=== PATIENT | male | born 1940 | race Caucasian/White ===

== ENCOUNTER 2019-08-26 12:33 | Emergency (ER) | payer MEDICARE ==
[~2019-08-26] VITALS: Ht 172.7 cm; Wt 75.0 kg
[~2019-08-26 12:33] MED LIST: ACET-3161 PO; FERR1TAB84 PO; MULT-1146 PO; [UNRECOGNIZED DRUG - REMARK]
[2019-08-26 13:14] LABS: BASOPHILS % 0.6 % (0.0-2.0); EOSINOPHILS % 2.1 % (0.0-5.0); HEMATOCRIT. 52.6 % (42.0-52.0); HEMOGLOBIN. 18.4 g/dL (14.0-18.0); MEAN CORPUSCULAR VOLUME 94.5 fL (80.0-94.0); MEAN PLATELET VOLUME 9.9 fl (7.4-10.4); MONOCYTES % 8.5 % (2.0-8.0); NEUTROPHILS % 50.8 % (40.0-76.0); PLATELET 149 x1000/uL (130-400); RED BLOOD CELL COUNT 5.57 mill/uL (4.7-6.1); RED CELL DISTRIBUTION WIDTH 13.8 % (11.6-14.6)
[2019-08-26] MEDS ORDERED: FOLIC ACID 1 MG, THIAMINE HCL 100 MG, MVI, ADULT NO.1 10 ML in DEXTROSE 5% WATER 1,000 ML IV ONE ×4 (13:15)
[2019-08-26 13:16] LABS: CHLORIDE 103 mEq/L (98-107)
[2019-08-26 13:20] LABS: ETHANOL BLOOD 247 mg/dL
[2019-08-26] MEDS ORDERED: ONDANSETRON HCL 4MG/2ML INJ IV ONE (14:15)
[2019-08-26 15:07] LABS: CLARITY URINE CLEAR (CLEAR); COLOR URINE YELLOW (YELLOW); KETONES URINE NEGATIVE (NEGATIVE); LEUKOCYTE ESTERASE URINE NEGATIVE (NEGATIVE); NITRITE URINE NEGATIVE (NEGATIVE); OCCULT BLOOD URINE NEGATIVE (NEGATIVE); PROTEIN URINE NEGATIVE (NEGATIVE); SPECIFIC GRAVITY URINE 1.008 (1.005-1.030)
[2019-08-26 15:21] LABS: *AMPHETAMINES SCREEN URINE NEGATIVE (NEGATIVE); *BARBITURATES SCREEN URINE NEGATIVE (NEGATIVE); *BENZODIAZEPINES SCREEN URINE NEGATIVE (NEGATIVE); *COCAINE SCREEN URINE NEGATIVE (NEGATIVE); METHADONE URINE SCREEN NEGATIVE (NEGATIVE); OPIATES URINE SCREEN NEGATIVE (NEGATIVE)
[2019-08-26 15:22] LABS: CANNABINOID URINE SCREEN NEGATIVE (NEGATIVE); PHENCYCLIDINE URINE SCREEN NEGATIVE (NEGATIVE)
[2019-08-26 18:00] VITALS: BP 124/81
== END 2019-08-26 18:06 | disposition home or self-care (01) ==
LOC: ER 12:33
DX: T51.0X1A Toxic effect of ethanol, accidental (unintentional), initial encounter (principal); S02.2XXB Fracture of nasal bones, initial encounter for open fracture; G92 Toxic encephalopathy; F10.129 Alcohol abuse with intoxication, unspecified; Y90.8 Blood alcohol level of 240 mg/100 ml or more; W01.198A Fall on same level from slipping, tripping and stumbling with subsequent striking against other object, initial encounter; Y93.89 Activity, other specified; Y92.89 Other specified places as the place of occurrence of the external cause
CPT/HCPCS: 36415; 70450; 70486; 71045; 72125; 80053; 80305; 80307; 80320; 80329; 81003; 84484; 85025; 93005; 96365; 96375; 99285; J3411; J3490; J7070; G0480

== ENCOUNTER 2020-12-01 12:28 | Inpatient (IN) | payer MEDICARE, OTHER ==
[~2020-12-01] VITALS: Ht 177.8 cm; Wt 81.3 kg
[2020-12-01 14:08] LABS: BASOPHILS % 0.5 % (0.0-2.0); EOSINOPHILS % 0.7 % (0.0-5.0); HEMOGLOBIN. 18.2 g/dL (14.0-18.0); MEAN CORPUSCULAR HEMOGLOBIN 33.4 pg (28.0-32.0); MEAN CORPUSCULAR VOLUME 93.6 fL (80.0-94.0); MEAN PLATELET VOLUME 10.2 fl (7.4-10.4); MONOCYTES % 8.4 % (2.0-8.0); NEUTROPHILS % 76.4 % (40.0-76.0); PLATELET 184 x1000/uL (130-400); RED BLOOD CELL COUNT 5.45 mill/uL (4.7-6.1); RED CELL DISTRIBUTION WIDTH 13.2 % (11.6-14.6)
[2020-12-01 14:11] LABS: CHLORIDE 106 mEq/L (98-107)
[2020-12-01 14:15] LABS: ETHANOL BLOOD < 10 mg/dL
[2020-12-01] MEDS ORDERED: SODIUM CHLORIDE 0.9% 1,000 ML IV ONE (15:15)
[2020-12-01 16:35] LABS: CLARITY URINE CLEAR (CLEAR); COLOR URINE DARK YELLOW (YELLOW); KETONES URINE TRACE (NEGATIVE); LEUKOCYTE ESTERASE URINE TRACE (NEGATIVE); NITRITE URINE NEGATIVE (NEGATIVE); OCCULT BLOOD URINE NEGATIVE (NEGATIVE); PH URINE 7.5 (4.5-8.0); PROTEIN URINE TRACE (NEGATIVE); SPECIFIC GRAVITY URINE 1.021 (1.005-1.030)
[2020-12-01 16:50] LABS: *BARBITURATES SCREEN URINE NEGATIVE (NEGATIVE); *BENZODIAZEPINES SCREEN URINE NEGATIVE (NEGATIVE)
[2020-12-01 16:51] LABS: *AMPHETAMINES SCREEN URINE NEGATIVE (NEGATIVE); *COCAINE SCREEN URINE NEGATIVE (NEGATIVE); METHADONE URINE SCREEN NEGATIVE (NEGATIVE); OPIATES URINE SCREEN NEGATIVE (NEGATIVE); PHENCYCLIDINE URINE SCREEN NEGATIVE (NEGATIVE)
[2020-12-01 16:52] LABS: CANNABINOID URINE SCREEN NEGATIVE (NEGATIVE)
[2020-12-01] MEDS ORDERED: CEFTRIAXONE 1 G PREMIX 50 ML IV SCH (18:45)
[2020-12-01] MEDS: CEFTRIAXONE 1,000 MG in DEXTROSE 5% WATER 50 ML IV SCH (21:27)
[2020-12-01] MEDS ORDERED: ONDANSETRON HCL 4MG TABLET PO PRN (22:45)
[2020-12-01] MEDS ORDERED: ACETAMINOPHEN 325MG TABLET PO PRN (22:45)
[2020-12-01] MEDS: LORAZEPAM 1MG TABLET PO PRN (23:32)
[2020-12-02] VITALS (9 sets, daily range): BP systolic 99–150; BP diastolic 71–94
[2020-12-02] MEDS: PANTOPRAZOLE 40MG DR TABLET PO SCH (05:53)
[2020-12-02] MEDS: ENOXAPARIN 40MG/0.4ML SYR SUBCUT SCH (08:55)
[2020-12-02] MEDS: MULTIVITAMINS,THER W-MINERALS TABLET PO SCH (08:55)
[2020-12-02] MEDS: ASPIRIN 81MG TABLET PO SCH (08:55)
[2020-12-02] MEDS: THIAMINE HCL 100MG TABLET PO SCH (08:56)
[2020-12-02] MEDS: FOLIC ACID 1MG TABLET PO SCH (08:56)
[2020-12-02] MEDS: CEFTRIAXONE 1,000 MG in DEXTROSE 5% WATER 50 ML IV SCH (20:49)
[2020-12-03] VITALS (8 sets, daily range): BP systolic 110–137; BP diastolic 56–85
[2020-12-03] MEDS: PANTOPRAZOLE 40MG DR TABLET PO SCH (06:03)
[2020-12-03] MEDS: ASPIRIN 81MG TABLET PO SCH (09:13)
[2020-12-03] MEDS: MULTIVITAMINS,THER W-MINERALS TABLET PO SCH (09:13)
[2020-12-03] MEDS: FOLIC ACID 1MG TABLET PO SCH (09:14)
[2020-12-03] MEDS: THIAMINE HCL 100MG TABLET PO SCH (09:15)
[2020-12-03] MEDS: ENOXAPARIN 40MG/0.4ML SYR SUBCUT SCH (09:15)
[2020-12-03] MEDS: CEFTRIAXONE 1,000 MG in DEXTROSE 5% WATER 50 ML IV SCH (20:17)
[2020-12-03] MEDS: FAMOTIDINE 20MG TABLET PO SCH (21:29)
[2020-12-04] VITALS (7 sets, daily range): BP systolic 105–129; BP diastolic 59–85
[2020-12-04] MEDS: FAMOTIDINE 20MG TABLET PO SCH ×2 (07:03→20:26)
[2020-12-04 10:07] LABS: BASOPHILS % 0.6 % (0.0-2.0); HEMATOCRIT. 54.4 % (42.0-52.0); HEMOGLOBIN. 19.2 g/dL (14.0-18.0); LYMPHOCYTES % 25.4 % (20.0-50.0); MEAN CORPUSCULAR HEMOGLOBIN 32.8 pg (28.0-32.0); MEAN PLATELET VOLUME 10.1 fl (7.4-10.4); MONOCYTES % 8.4 % (2.0-8.0); NEUTROPHILS % 63.6 % (40.0-76.0); PLATELET 180 x1000/uL (130-400); RED BLOOD CELL COUNT 5.85 mill/uL (4.7-6.1); RED CELL DISTRIBUTION WIDTH 13.2 % (11.6-14.6)
[2020-12-04 10:23] LABS: CHLORIDE 103 mEq/L (98-107)
[2020-12-04] MEDS: ENOXAPARIN 40MG/0.4ML SYR SUBCUT SCH (10:28)
[2020-12-04] MEDS: ASPIRIN 81MG TABLET PO SCH (10:28)
[2020-12-04] MEDS: MULTIVITAMINS,THER W-MINERALS TABLET PO SCH (10:28)
[2020-12-04] MEDS: THIAMINE HCL 100MG TABLET PO SCH (10:28)
[2020-12-04] MEDS: CEFTRIAXONE 1,000 MG in DEXTROSE 5% WATER 50 ML IV SCH (20:28)
[2020-12-05] VITALS (8 sets, daily range): BP systolic 106–135; BP diastolic 60–84
[2020-12-05] MEDS: FAMOTIDINE 20MG TABLET PO SCH ×2 (06:42→22:22)
[2020-12-05] MEDS: THIAMINE HCL 100MG TABLET PO SCH (09:00)
[2020-12-05] MEDS: ASPIRIN 81MG TABLET PO SCH (09:00)
[2020-12-05] MEDS: FOLIC ACID 1MG TABLET PO SCH (09:00)
[2020-12-05] MEDS: MULTIVITAMINS,THER W-MINERALS TABLET PO SCH (09:00)
[2020-12-05] MEDS: ENOXAPARIN 40MG/0.4ML SYR SUBCUT SCH (09:01)
[2020-12-05] MEDS: CEFTRIAXONE 1,000 MG in DEXTROSE 5% WATER 50 ML IV SCH (20:39)
[2020-12-05] MEDS: LORAZEPAM 1MG TABLET PO PRN (22:22)
[2020-12-06 04:00] VITALS: BP 106/63
[2020-12-06] MEDS: FAMOTIDINE 20MG TABLET PO SCH ×2 (07:40→20:03)
[2020-12-06 08:00] VITALS: BP 118/78
[2020-12-06] MEDS: ENOXAPARIN 40MG/0.4ML SYR SUBCUT SCH (09:00)
[2020-12-06] MEDS: THIAMINE HCL 100MG TABLET PO SCH (09:41)
[2020-12-06] MEDS: MULTIVITAMINS,THER W-MINERALS TABLET PO SCH (09:41)
[2020-12-06] MEDS: ASPIRIN 81MG TABLET PO SCH (09:41)
[2020-12-06] MEDS: FOLIC ACID 1MG TABLET PO SCH (09:41)
[2020-12-06 20:00] VITALS: BP_SYST 107; BP_SYST 122; BP_DIAS 69; BP_DIAS 70; BP_DIAS 80
[2020-12-06] MEDS: CEFTRIAXONE 1,000 MG in DEXTROSE 5% WATER 50 ML IV SCH (20:03)
[2020-12-07] VITALS: BP 116/67
[2020-12-07 04:00] VITALS: BP 119/74
[2020-12-07] MEDS: FAMOTIDINE 20MG TABLET PO SCH ×2 (06:17→21:07)
[2020-12-07 08:00] VITALS: BP 125/72
[2020-12-07] MEDS: ENOXAPARIN 40MG/0.4ML SYR SUBCUT SCH (09:10)
[2020-12-07] MEDS: THIAMINE HCL 100MG TABLET PO SCH (09:10)
[2020-12-07] MEDS: FOLIC ACID 1MG TABLET PO SCH (09:10)
[2020-12-07] MEDS: ASPIRIN 81MG TABLET PO SCH (09:10)
[2020-12-07] MEDS: MULTIVITAMINS,THER W-MINERALS TABLET PO SCH (09:10)
[2020-12-07 12:00] VITALS: BP 105/68
[2020-12-07 16:00] VITALS: BP 113/75
[2020-12-07 20:00] VITALS: BP 112/70
[2020-12-08] VITALS: BP_SYST 122; BP_SYST 124; BP_SYST 131; BP_DIAS 80; BP_DIAS 83; BP_DIAS 89
[2020-12-08 04:00] VITALS: BP 131/75
[2020-12-08] MEDS: FAMOTIDINE 20MG TABLET PO SCH ×2 (06:51→20:50)
[2020-12-08 08:00] VITALS: BP 132/82
[2020-12-08] MEDS: THIAMINE HCL 100MG TABLET PO SCH (10:34)
[2020-12-08] MEDS: ENOXAPARIN 40MG/0.4ML SYR SUBCUT SCH (10:34)
[2020-12-08] MEDS: MULTIVITAMINS,THER W-MINERALS TABLET PO SCH (10:34)
[2020-12-08] MEDS: ASPIRIN 81MG TABLET PO SCH (10:34)
[2020-12-08] MEDS: FOLIC ACID 1MG TABLET PO SCH (10:35)
[2020-12-08 12:00] VITALS: BP 123/74
[2020-12-08 16:00] VITALS: BP 108/64
[2020-12-08 20:00] VITALS: BP_SYST 126; BP_SYST 143; BP_DIAS 119; BP_DIAS 77
[2020-12-09] VITALS: BP 125/78
[2020-12-09 04:00] VITALS: BP 120/82
[2020-12-09] MEDS: FAMOTIDINE 20MG TABLET PO SCH ×2 (06:11→21:52)
[2020-12-09 08:00] VITALS: BP 121/79
[2020-12-09] MEDS: ENOXAPARIN 40MG/0.4ML SYR SUBCUT SCH (08:58)
[2020-12-09] MEDS: THIAMINE HCL 100MG TABLET PO SCH (08:58)
[2020-12-09] MEDS: FOLIC ACID 1MG TABLET PO SCH (08:58)
[2020-12-09] MEDS: MULTIVITAMINS,THER W-MINERALS TABLET PO SCH (08:58)
[2020-12-09] MEDS: ASPIRIN 81MG TABLET PO SCH (09:25)
[2020-12-09 12:00] VITALS: BP 127/77
[2020-12-09 12:33] LABS: VITAMIN B12 SERUM 358 pg/mL (211-911)
[2020-12-09 12:45] LABS: FOLIC ACID (FOLATE) SERUM > 20.00 ng/mL (>5.38)
[2020-12-09 16:00] VITALS: BP_SYST 125; BP_SYST 129; BP_DIAS 78; BP_DIAS 81
[2020-12-09 20:00] VITALS: BP 113/71
[2020-12-10] VITALS: BP 134/56
[2020-12-10 04:00] VITALS: BP 125/80
[2020-12-10] MEDS: FAMOTIDINE 20MG TABLET PO SCH ×2 (06:08→21:05)
[2020-12-10 06:21] LABS: BASOPHILS % 0.8 % (0.0-2.0); EOSINOPHILS % 3.3 % (0.0-5.0); HEMATOCRIT. 49.1 % (42.0-52.0); MEAN CORPUSCULAR HEMOGLOBIN 32.8 pg (28.0-32.0); MEAN CORPUSCULAR VOLUME 94.6 fL (80.0-94.0); MEAN PLATELET VOLUME 11.1 fl (7.4-10.4); MONOCYTES % 11.4 % (2.0-8.0); NEUTROPHILS % 53.5 % (40.0-76.0); PLATELET 142 x1000/uL (130-400); RED BLOOD CELL COUNT 5.19 mill/uL (4.7-6.1); RED CELL DISTRIBUTION WIDTH 12.9 % (11.6-14.6)
[2020-12-10 06:45] LABS: CHLORIDE 102 mEq/L (98-107)
[2020-12-10 08:00] VITALS: BP 121/79
[2020-12-10] MEDS: FOLIC ACID 1MG TABLET PO SCH (08:36)
[2020-12-10] MEDS: MULTIVITAMINS,THER W-MINERALS TABLET PO SCH (08:36)
[2020-12-10] MEDS: ASPIRIN 81MG TABLET PO SCH (08:36)
[2020-12-10] MEDS: ENOXAPARIN 40MG/0.4ML SYR SUBCUT SCH (08:36)
[2020-12-10] MEDS: THIAMINE HCL 100MG TABLET PO SCH (08:36)
[2020-12-10 12:00] VITALS: BP 127/70
[2020-12-10] MEDS: CYANOCOBALAMIN 1000MCG/ML VIAL IM SCH (15:29)
[2020-12-10 16:00] VITALS: BP 122/65
[2020-12-10 20:00] VITALS: BP 105/57
[2020-12-11] VITALS: BP 113/63
[2020-12-11 06:00] VITALS: BP 127/62
[2020-12-11] MEDS: FAMOTIDINE 20MG TABLET PO SCH ×2 (06:33→20:46)
[2020-12-11 08:00] VITALS: BP 131/77
[2020-12-11] MEDS: ENOXAPARIN 40MG/0.4ML SYR SUBCUT SCH (08:32)
[2020-12-11] MEDS: FOLIC ACID 1MG TABLET PO SCH (08:32)
[2020-12-11] MEDS: THIAMINE HCL 100MG TABLET PO SCH (08:32)
[2020-12-11] MEDS: MULTIVITAMINS,THER W-MINERALS TABLET PO SCH (08:32)
[2020-12-11] MEDS: CYANOCOBALAMIN 1000MCG/ML VIAL IM SCH (08:32)
[2020-12-11] MEDS: ASPIRIN 81MG TABLET PO SCH (08:32)
[2020-12-11 12:00] VITALS: BP 110/67
[2020-12-11 16:00] VITALS: BP 104/69
[2020-12-11 16:41] VITALS: BP 110/67
[2020-12-16 19:10] LABS: 25-HYDROXY VITAMIN D3 25 ng/mL (.)
== END 2020-12-11 21:47 | DRG 73 ==
LOC: ER 13:05 → 8WST 16:17 → ENRESERV 17:02
PROVIDERS: ADMIT Internal Medicine; ATTEND Internal Medicine
DX: G90.8 Other disorders of autonomic nervous system (principal); G93.41 Metabolic encephalopathy; N39.0 Urinary tract infection, site not specified; F10.20 Alcohol dependence, uncomplicated; R53.81 Other malaise; Y90.0 Blood alcohol level of less than 20 mg/100 ml; E53.9 Vitamin B deficiency, unspecified; R26.9 Unspecified abnormalities of gait and mobility; Z20.822 Contact with and (suspected) exposure to COVID-19; R20.0 Anesthesia of skin; G62.9 Polyneuropathy, unspecified; Z82.49 Family history of ischemic heart disease and other diseases of the circulatory system; Z79.899 Other long term (current) drug therapy
CPT/HCPCS: 36415; 70551; 71045; 80048; 80053; 80305; 80320; 81003; 82306; 82607; 82746; 83605; 83735; 83880; 84484; 85025; 87426; 92523; 92610; 93005; 97110; 97116; 97162; 97166; 97530; 99285; J0696; J1650; J3420; J7060; G0480